=== PATIENT | male | born 1965 | race Caucasian/White ===

== ENCOUNTER 2017-07-08 11:24 | Emergency (ER) | payer BC, MEDICAID, OTHER ==
[~2017-07-08] VITALS: Ht 175.3 cm; Wt 113.6 kg
[2017-07-08 12:07] VITALS: BP 162/92
[2017-07-08] MEDS ORDERED: HYDROcodone/APAP 5/325 TABLET ONE (14:09)
[2017-07-08] MEDS ORDERED: HYDROcodone/APAP 5/325 TABLET PO ONE (14:30)
== END 2017-07-08 14:22 | disposition home or self-care (01) ==
LOC: ED 14:10
DX: S83.91XA Sprain of unspecified site of right knee, initial encounter (principal); M25.461 Effusion, right knee; M10.9 Gout, unspecified; X50.1XXA Overexertion from prolonged static or awkward postures, initial encounter; Y93.89 Activity, other specified; Y99.8 Other external cause status; Y92.89 Other specified places as the place of occurrence of the external cause
CPT/HCPCS: 29505; 99284